=== PATIENT | female | born 1970 | race Caucasian/White ===

== ENCOUNTER 2020-04-02 18:29 | Outpatient (REF) | payer MEDICAID, SELFPAY ==
[2020-04-05 08:37] LABS: Patient Race White; SARS-CoV-2 RNA Undetected (Undetected); SARS-CoV-2 Specimen Source Nasopharynx
== END 2020-04-02 18:49 ==
LOC: NCHCN 18:29
PROVIDERS: PCP Internal Medicine; Visit Provider Internal Medicine
DX: R05 Cough (principal)
CPT/HCPCS: U0003

== ENCOUNTER 2021-01-15 12:13 | Outpatient (CLI) | payer MEDICAID, SELFPAY ==
--- NOTE | 2021-01-15 06:00 | DI.RAD_ITS ---
Exam(s) XR PAIN CLINIC CERVICAL SP 2V EXAM: XR PAIN CLINIC CERVICAL SP 2V CLINICAL HISTORY: Dx: Cervical Radiculopathy TECHNIQUE: 2D and realtime digital imaging was performed. Radiologist not present. CONTRAST MATERIAL: None. COMPARISON: No exams were available for comparison FINDINGS: Fluoroscopy was provided for pain management therapy. Please refer to procedure report or details. Apparently C7-T1 steroid injection. No images applied Cumulative dose: Ka,r=not given mGy IMPRESSION: RADIATION DOSE DELIVERED:
[2021-01-15 12:21] VITALS: BP 112/65; PULSE 72; RESP 20; TEMP 37.1; O2SAT 99
[2021-01-15 12:47] VITALS: BP 124/80; PULSE 65; RESP 23; O2SAT 95
[2021-01-15] MEDS: Dexamethasone Sod. Phos./Pres-Free 10 MG/ML VIAL IJ (12:53)
[2021-01-15] MEDS: Omnipaque 240 MG/ML 50 ML BTL IJ (12:56)
--- NOTE | 2021-01-15 13:18 | PDOC.PAIN ---
Pain Clinic Procedure Note Procedure Note Procedure Note: Cervical Epidural Steroid Injection MANGO RUEDA has been referred to the [facility] for cervical epidural steroid injection. COMMENTS: She was evaluated in our office on 09/10/20 and had a cervical MRI on 07/26/20. I did review these documents. No IV was placed for this procedure. Dx: Cervical radiculopathy Ms RUEDA was interviewed and the medical record reviewed. There were no medical, pharmacologic, radiographic or other structural contraindications to attempting fluoroscopically guided epidural steroid injection. Risks and expected side effects as well as potential benefit of the procedure were reviewed with Ms RUEDA , and Ms RUEDA voiced concerns addressed. The printed consent form was signed and witnessed. Standard time-out procedure was performed. The patient was placed in the prone position on the fluoroscopy table and automated blood pressure cuff and pulse oximeter applied. The skin entry point for entering the epidural space by a midline C7-T1 interlaminar approach was identified under fluoroscopy and marked. Following thorough Chlorhexadine preparation of the skin and draping and 1% lidocaine infiltration of the skin entry point and subcutaneous tissues, an 18 gauge Tuohy needle was placed under fluoroscopic guidance and with loss of resistance technique into the C7-T1 epidural space. Upon needle placement and loss of resistance there were no paresthesiae or return of blood or CSF through the needle. 1 cc of Omnipaque 240 was injected with clear epidural spread in the A/P, lateral and oblique views. 10 mg of preservative free Dexomethasone was injected with no unusual discomfort expressed by MOHIT. This was flushed with 1 cc of normal saline. Ms RUEDA 's vital signs were stable throughout the procedure and were as recorded in the docflowsheet by the nursing staff. Follow up plans and appointments were discussed with the Ms RUEDA. Post procedure instruction was given as documented in nursing documentation and having met discharge criteria, Ms RUEDA was discharged from the [facility]. COMMENTS: She did very well with this procedure. Post-procedure pain VAS was 1/10. Boris Mao DO, MPH Pain Management CC: Lokesh Prasad
== END 2021-01-15 12:14 | disposition home or self-care (01) ==
LOC: PC 12:14
PROVIDERS: PCP Internal Medicine; Visit Provider Preventive Medicine Occupational Medicine
DX: M54.12 Radiculopathy, cervical region (principal)
CPT/HCPCS: 62321; 72040; Q9967

== ENCOUNTER 2021-04-10 20:20 | Outpatient (REF) | payer MEDICAID, SELFPAY ==
[2021-04-12 15:41] LABS: COVID-19 RT-PCR UVMMC Result Negative (Negative)
== END 2021-04-10 20:21 | disposition home or self-care (01) ==
LOC: NCHCN 20:20
PROVIDERS: PCP Internal Medicine; Visit Provider Physician Assistant
DX: Z20.822 Contact with and (suspected) exposure to COVID-19 (principal)
CPT/HCPCS: U0003

== ENCOUNTER 2021-05-29 15:46 | Outpatient (REF) | payer MEDICAID, SELFPAY ==
[2021-05-29 21:30] LABS: Epithelial Cells Rare HPF (Negative); WBC Negative HPF (0-5)
[2021-05-29 21:31] LABS: Bacteria Rare HPF (Negative); C & S Indicated? C&S Done As Ordered; Crystals Negative HPF (Negative); Mucus Trace (Negative)
== END 2021-05-29 15:47 | disposition home or self-care (01) ==
LOC: NCHCN 15:46
PROVIDERS: PCP Internal Medicine; Visit Provider Physician Assistant
DX: R10.10 Upper abdominal pain, unspecified (principal)
CPT/HCPCS: 81015; 87086

== ENCOUNTER 2021-10-08 07:44 | Outpatient (CLI) | payer MEDICAID, SELFPAY ==
--- NOTE | 2021-10-08 06:00 | DI.RAD_ITS ---
Exam(s) XR PAIN CLINIC CERVICAL SP 2V EXAM: XR PAIN CLINIC CERVICAL SP 2V CLINICAL HISTORY: Cervical spondilosis TECHNIQUE: 2D and realtime digital imaging was performed. CONTRAST MATERIAL: Refer to procedure report. COMPARISON: No exams were available for comparison FINDINGS: Fluoroscopy was provided for Dr. Mao during the performance of a C7-T1 injection. Please refer to the procedure report for complete details. Ka,r=3.77 mGy IMPRESSION:
[2021-10-08 07:53] VITALS: BP 114/70; PULSE 82; RESP 18; TEMP 37.1; O2SAT 100
--- NOTE | 2021-10-08 08:37 | PDOC.PAIN ---
Pain Clinic Procedure Note Procedure Note Procedure Note: Cervical Epidural Steroid Injection Yadi Collins has been referred to the [facility] for cervical epidural steroid injection. COMMENTS: She had her last ANISHA on 01/15/2021 with 6+ months of pain relief. Her pre-procedure pain level was 5/10. Dx: Cervical radiculopathy Dennis was interviewed and the medical record reviewed. There were no medical, pharmacologic, radiographic or other structural contraindications to attempting fluoroscopically guided epidural steroid injection. Risks and expected side effects as well as potential benefit of the procedure were reviewed with Dennis , and Dennis voiced concerns addressed. The printed consent form was signed and witnessed. Standard time-out procedure was performed. The patient was placed in the prone position on the fluoroscopy table and automated blood pressure cuff and pulse oximeter applied. The skin entry point for entering the epidural space by a midline C7-T1 interlaminar approach was identified under fluoroscopy and marked. Following thorough Chlorhexadine preparation of the skin and draping and 1% lidocaine infiltration of the skin entry point and subcutaneous tissues, an 18 gauge Tuohy needle was placed under fluoroscopic guidance and with loss of resistance technique into the C7-T1 epidural space. Upon needle placement and loss of resistance there were no paresthesiae or return of blood or CSF through the needle. 1 cc of Omnipaque 240 was injected with clear epidural spread in the A/P, lateral and oblique views. 10 mg of preservative free Dexomethasone was injected with no unusual discomfort expressed by Dennis. This was flushed with 1 cc of normal saline. Dennis 's vital signs were stable throughout the procedure and were as recorded in the docflowsheet by the nursing staff. Follow up plans and appointments were discussed with the Dennis. Post procedure instruction was given as documented in nursing documentation and having met discharge criteria, Dnenis was discharged from the [facility]. COMMENTS: Post-procedure pain VAS = 6/10. Boris Mao DO, MPH [facility]-Pain Management [facility] CC: Lokesh Prasad
[2021-10-08] MEDS: Dexamethasone Sod. Phos./Pres-Free 10 MG/ML VIAL IJ (08:47)
[2021-10-08 08:48] VITALS: BP 122/80; PULSE 78; RESP 21; O2SAT 96
[2021-10-08] MEDS: Omnipaque 240 MG/ML 50 ML BTL IJ (08:48)
== END 2021-10-08 07:45 | disposition home or self-care (01) ==
LOC: PC 07:44
PROVIDERS: PCP Internal Medicine; Visit Provider Preventive Medicine Occupational Medicine
DX: M54.12 Radiculopathy, cervical region (principal)
CPT/HCPCS: 62321; 72040; Q9967

== ENCOUNTER 2022-10-07 16:36 | Outpatient (REF) | payer MEDICAID, SELFPAY ==
[2022-10-07 20:39] LABS: ALT 32 U/L (14-59); AST 21 U/L (15-37); Alkaline Phosphatase 99 U/L (46-116); Anion Gap 6.4 mmol/L (3-11); BUN 14 mg/dL (7-18); Bilirubin, Total 0.4 mg/dL (0.2-1.0); CO2 27.6 mmol/L (21.0-32.0); CREATININE 1.2 mg/dL (0.55-1.02); Calcium 9.4 mg/dL (8.5-10.1); Calculated LDL 126 mg/dL (<100); Chloride 105 mmol/L (98-107); Cholesterol 189 mg/dL (<200); Estimated GFR 55.15 (mL/min/1.73m2); Glucose 95 mg/dL (74-106); HDL Cholesterol 35 mg/dL (40-60); Sodium 139 mmol/L (136-145); TSH 1.03 uIU/mL (0.36-3.74); Total Protein 7.2 g/dL (6.4-8.2); Triglyceride 140 mg/dL (<150)
== END 2022-10-07 16:37 | disposition home or self-care (01) ==
LOC: NCHCN 16:36
PROVIDERS: PCP Internal Medicine; Visit Provider Internal Medicine
DX: R49.0 Dysphonia (principal); J01.90 Acute sinusitis, unspecified; F17.210 Nicotine dependence, cigarettes, uncomplicated
CPT/HCPCS: 80053; 80061; 84443

== ENCOUNTER 2023-06-01 15:45 | Outpatient (CLI) | payer BC, SELFPAY ==
--- NOTE | 2023-06-01 06:00 | DI.RAD_ITS ---
Exam(s) XR PAIN CLINIC CERVICAL SP 2V EXAM: XR PAIN CLINIC CERVICAL SP 2V CLINICAL HISTORY: DX: Cervical radiculopathy. TECHNIQUE: Fluoroscopy was provided for the referring physician for guidance with performing pain cl inic injection procedure. COMPARISON: No exams were available for comparison FINDINGS: Please see procedure note for details. Fluoro time: 33.7 seconds RADIATION DOSE DELIVERED: Ka,r=3.4 mGy
[2023-06-01 15:55] VITALS: BP 130/84; PULSE 63; RESP 20; TEMP 36.8; O2SAT 98
[2023-06-01 16:32] VITALS: BP 128/88; PULSE 61; RESP 20; O2SAT 96
--- NOTE | 2023-06-01 16:34 | PDOC.PAIN ---
Date of service: 06/01/23 Time of Service: 16:34 Pain Managment Procedure Note Procedure Note Procedure Note: Procedure Note Cervical Interlaminar Epidural Steroid Injection Date of Service: June 01, 2023 Patient:Yadi Lovett? Provider:? Virginia Mao DO, MPH Yadi has been referred to the [facility] for cervical epidural steroid injection.? Pre-operative diagnosis: Cervical Radiculopathy Post-operative diagnosis: Same Pre-procedure pain: VAS= 8/10 Comments: She last had this procedure on 10/08/22 and had >3 months of >50% pain improvement Yadi was interviewed and the medical record was reviewed.? There were no medical, pharmacologic, radiographic or other structural contraindications to attempting fluoroscopically guided cervical interlaminar epidural steroid injection.? Risks, potential side effects, indications, and potential benefits of the procedure were reviewed with Yadi.? Questions and concerns were addressed.? After it was clear that the patient was fully informed about the procedure, the printed consent form was signed by the patient and myself.? Yadi was placed in the prone position on the fluoroscopy table and automated blood pressure cuff as well as pulse oximeter was applied. A standard time-out procedure was performed. The skin entry point for entering the epidural space by a midline C6-C7 interlaminar approach was identified under fluoroscopy and marked.? The skin entry point was thoroughly cleaned with Chlorhexadine preparation and the skin was draped.? Next a mixture of 2 mls of 1% lidocaine was infiltrated into the area of the planned skin entry point and underlying subcutaneous tissues.? Next an 18 gauge Tuohy needle was placed under fluoroscopic guidance and with loss of resistance technique into the epidural space utilizing multiple AP and 55 degree contralateral fluoroscopic views.? Upon correct needle placement and loss of resistance, there were no paresthesia or return of blood or CSF through the needle. Next 1 mls of preservative-free Omnipaque 240 was injected with clear epidural spread in the A/P and oblique views. Next, a solution of 15 mg of preservative-free Dexamethasone was injected. This was followed with 1ml of preservative-free normal saline. No unusual discomfort was expressed by Yadi. The needle was withdrawn without difficulty. (49 mls of Omnipaque and 5 mg of Dexamethasone was wasted) Yadi was observed and was without hemodynamic, neurologic, or allergic reactions.? Fluoroscopic images were digitally archived. Yadi's vital signs were stable throughout the procedure and were as recorded in the doc flowsheet by the nursing staff.? If given, dosages of intravenous drugs for anxiolysis and analgesia were documented in MAR. Follow up plans and appointments were discussed with Yadi.? Post procedure instruction was given as documented in nursing documentation and having met discharge criteria, [facility]. A retrospective review of interlaminar cervical ESIs found that approximately two-thirds of patients with symptomatic cervical radiculopathy from disc herniation were able to avoid surgery for up to 1 year with treatment. Success rate was improved with earlier injection (< 100 days from diagnosis). Ruth EL, Erika V, Nadira L, Vasyl AN, Brigido TRIPLETT. Cervical epidural steroid injections for symptomatic disc herniations. J Spinal Disord Tech. 2006 November;19(3):183-6. ? COMMENTS: No apparent complications. Post-procedure pain: VAS= 2/10. Yadi to contact [place] [facility] as needed. If at least 50% improvement in pain and/or function for at least 3 months is achieved, this procedure can be repeated. I personally completed the entire procedure. VIRGINIA MAO DO, MPH [employer]BP[employer]-subspecialty board certification in Pain Medicine [facility] [facility]
[2023-06-01] MEDS: Omnipaque 240 MG/ML 50 ML BTL IJ (16:35)
[2023-06-01] MEDS: Dexamethasone Sod. Phos./Pres-Free 10 MG/ML VIAL IJ (16:35)
== END 2023-06-01 15:46 | disposition home or self-care (01) ==
LOC: PC 15:48
PROVIDERS: PCP Internal Medicine; Visit Provider Preventive Medicine Occupational Medicine
DX: M54.12 Radiculopathy, cervical region (principal)
CPT/HCPCS: 00123; 62321; 72040; Q9967

== ENCOUNTER 2023-07-27 15:49 | Outpatient (REF) | payer BC, SELFPAY ==
[2023-07-27 20:46] LABS: HCT 41.2 % (36.0-46.0); HGB 14.3 g/dL (11.2-15.7); MCH 31.5 pg (27.0-33.0); MCHC 34.7 % (32.0-36.0); MCV 91 fL (80-95); MPV 11.6 fL (8.0-11.0); Platelet Count 191 10^3/uL (130-400); RBC 4.54 10^6/uL (3.93-5.22); RDW 12.7 % (11.7-14.6); WBC 8.67 10^3/uL (4.4-10.8)
[2023-07-27 21:19] LABS: Anion Gap 7.2 mmol/L (3-11); BUN 16 mg/dL (7-18); CO2 27.8 mmol/L (21.0-32.0); CREATININE 1.1 mg/dL (0.55-1.02); Calcium 9.6 mg/dL (8.5-10.1); Chloride 107 mmol/L (98-107); Estimated GFR 60.84 (mL/min/1.73m2); Glucose 94 mg/dL (74-106); Potassium 4.1 mmol/L (3.5-5.1); Sodium 142 mmol/L (136-145); TSH 1.38 uIU/mL (0.36-3.74)
[2023-07-27 21:45] LABS: Hemoglobin A1C 5.4 % (<5.7)
[2023-07-28 19:06] LABS: CRP, High Sensitivity 0.57 mg/L (See Note)
== END 2023-07-27 15:50 | disposition home or self-care (01) ==
LOC: NCHCN 15:49
PROVIDERS: PCP Internal Medicine; Visit Provider Internal Medicine
DX: R00.2 Palpitations (principal)
CPT/HCPCS: 80048; 85027; 86141; 83036; 84443

== ENCOUNTER 2024-07-23 10:06 | Outpatient (CLI) | payer BC, SELFPAY ==
[2024-07-23 10:20] VITALS: BP 120/74; PULSE 73; RESP 18; TEMP 36.9; O2SAT 100
[2024-07-23 10:42] VITALS: O2SAT 97
[2024-07-23 10:50] VITALS: O2SAT 96
--- NOTE | 2024-07-23 10:58 | DI.RAD_ITS ---
Exam(s) XR PAIN CLINIC CERVICAL SP 2V EXAM: XR PAIN CLINIC CERVICAL SP 2V CLINICAL HISTORY: Dx: Cervical Radiculopathy TECHNIQUE: 2D and realtime digital imaging was performed. CONTRAST MATERIAL: Refer to procedure report. COMPARISON: No exams were available for comparison FINDINGS: Fluoroscopy was provided for Dr. Hernandez during the performance of a cervical epidural steroid injec tion. Please refer to the procedure report for complete details. Ka,r=2.3 mGy IMPRESSION: RADIATION DOSE DELIVERED: 0.0 0.0 0
[2024-07-23] MEDS: Epidural Tray 1 EACH MC (11:02)
[2024-07-23] MEDS: methylPREDNISolone ACETATE 40 MG/ML VIAL IJ (11:02)
[2024-07-23] MEDS: Omnipaque 240 MG/ML 50 ML BTL IJ (11:02)
--- NOTE | 2024-07-23 11:02 | PDOC.PAIN ---
Date of service: 07/23/24 Time of Service: 11:05 Pain Managment Procedure Note Procedure Note Procedure Note: CERVICAL EPIDURAL STEROID INJECTION ? Pre-procedure Diagnosis: M54.12- Radiculopathy, cervical region ? Post-procedure Diagnosis:? The same as above ? Sedation:? ? none ? Medication: Depo-Medrol 80 mg, Omnipaque 1 mL ? Estimated blood loss:? less than 2 cc ? Surgeon:? Enrique Hernandez MD Comment: Patient has had several cervical epidural steroid injections last 1 was in June 09 which gave her approximately a year relief of pain. Symptoms go to both upper extremities left greater than right. ? Procedure Detail:? The procedure and potential risks were explained to the patient and informed written consent was obtained. The patient was escorted to the procedure room and placed in the prone position. Pillows were utilized for proper positioning and comfort. Time out was performed in the procedure room with nursing staff confirming the patient's identity, procedure to be performed, allergies, and any blood thinning or anti-platelet medications.? The patient's neck and upper back was prepped with ChloraPrep and draped in a sterile fashion. Sterile technique was maintained throughout the procedure.? Sterile gloves were used, a face mask was worn, and new single dose vials of all medications were used with the top being swabbed with alcohol and given time to dry prior to withdrawal of medication. Lidocaine 1% was used to anesthetize the skin. Using a 25-gauge 1.5 inch needle, 1% lidocaine was instilled into the superficial soft tissue overlying the targeted area to provide local anesthesia. With fluoroscopic guidance, a 17 -gauge Tuohy needle was advanced toward the interlaminar space of T1-T2. The needle was then advance through the ligamentum flavum and into the posterior epidural space using the loss of resistance technique. Correct needle placement was confirmed through review of the AP and contralateral oblique fluoroscopic views. A 19-gauge Arrow catheter was threaded cephalad to the C4-5 slightly Left Following negative aspiration, one cc of Omnipaque 240 contrast was injected which confirmed good flow throughout the epidural space and no evidence of vascular flow or flow into adjacent compartments. Next, following negative aspiration, 1 cc's of normal saline and 80mg of Depo-Medrol was injected. The needle and catheter were gently removed intact. The patient tolerated the procedure well and was transported to the recovery area for observation and discharge instructions. Permanent images saved and recorded. Plan:? Follow up PRN. PAIN PRE PROCEDURE 02/24 POST PROCEDURE 08/27 COMMENT: Would get updated MRI since her last 1 was from 2020 if still having symptoms.
== END 2024-07-23 10:07 | disposition home or self-care (01) ==
LOC: PC 10:06
PROVIDERS: PCP Internal Medicine; Visit Provider Anesthesiology Pain Medicine
DX: M54.12 Radiculopathy, cervical region (principal)
CPT/HCPCS: 00123; 62321; 72040; J1010; Q9967